=== PATIENT | female | born 2005 | race Caucasian/White ===

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

== ENCOUNTER 2023-01-13 05:10 | Inpatient (IN) | payer OTHER, SELFPAY ==
[2023-01-13] VITALS (253 sets, daily range): BP systolic 96–150; BP diastolic 68–103; PULSE 73–118; TEMP 36.4–37; O2SAT 91–100; BMI 39.6
--- NOTE | 2023-01-13 05:49 | LDADM ---
This patient, Elizabeth Rogers, was admitted to Labor/Delivery/Recovery 107 on 01/13/23 at 05:10. Plans for labor, pain management and were discussed with patient. Patient/family oriented to hospital policies and general routines including ID bracelet, bed and alarms, visiting hours, pain management, procedures, bathroom and other care routines, personal items, smoking policy, room service/diet and guest tray routines, infant security routines, and visiting hours. Patient/Family are encouraged to report perceived risks to care and to ask questions if they do not understand what they are told or what they should do. See OBIX for further documentation.
[2023-01-13] MEDS: miSOPROStol 25 MCG TABLET VAGINAL (06:39)
[2023-01-13 06:42] LABS: Basophils Absolute Auto 0.1 K/mm3 (0.0-0.1); Basophils Percent Auto 0.5 % (0.2-1.2); Eosinophils Absolute Auto 0.2 K/mm3 (0-0.3); Eosinophils Percent Auto 1.8 % (0-4.4); Hematocrit 34.2 % (37.0-47.0); Hemoglobin 10.8 g/dL (12.0-15.0); Immature Granulocyte Absolute 0.13 K/mm3 (0.00-0.031); Lymphocytes Absolute Auto 2.44 K/mm3 (0.9-3.2); Lymphocytes Percent Auto 18.7 % (18.3-44.2); Mean Corpuscular HGB Conc 31.6 g/dl (32-36); Mean Corpuscular Hemoglobin 25.9 pg (26-34); Mean Platelet Volume 9.9 fl (7.4-10.4); Monocytes Absolute Auto 1.1 K/mm3 (0.1-0.6); Neutrophils Absolute Auto 9.1 K/mm3 (1.3-6.7); Platelet Count Result 346 k/mm3 (150-375); Red Blood Count 4.17 M/mm3 (4.2-5.4); Red Cell Distribution Width 15.1 % (11.5-14.5); White Blood Count 13.1 K/mm3 (4.5-10.0)
[2023-01-13] MEDS: miSOPROStol 25 MCG TABLET PO (11:30)
[2023-01-13 13:51] LABS: Rapid Plasma Reagin Non-Reactive (NonReactive)
[2023-01-13] MEDS: LACTATED RINGERS 1,000 ML 125 ML IV CONT ×2 (15:34→23:03)
[2023-01-13] MEDS: OXYTOCIN 30 UNITS/NS 500 ML 30 UNITS/500 ML BAG 6 UNITS IV CONT (15:34)
--- NOTE | 2023-01-13 17:30 | WPDANESEPPF ---
Anes - Initial Pre Proc Eval Procedure: Labor Epidural Date/Time: 01/13/23 17:30 Surgeon: Natalya Haywood MD Pre Op Diagnosis: Labor Pain Pre Op Diagnosis: IOL Patient Data Age: 17 Gender: F Height: 1.6 m Weight: 101.36 kg Last Vital Signs Temp 36.4 C 01/13/23 14:00 Pulse 87 01/13/23 17:00 BP 123/85 01/13/23 17:00 Pulse Ox 100 01/13/23 17:26 O2 Del Method Room Air 01/13/23 05:48 Allergies Allergy/AdvReac Type Severity Reaction Status Date / Time No Known Allergies Allergy Verified 12/21/22 14:33 Home Medications Medication Instructions Recorded Confirmed Type prenat.vits,stephanie,jxf-jihd-ptors 1 tablet PO DAILY 01/13/23 01/13/23 History Laboratory Tests 01/13/23 06:32 WBC 13.1 H K/mm3 (4.5-10.0) RBC 4.17 L M/mm3 (4.2-5.4) Hgb 10.8 L g/dL (12.0-15.0) Hct 34.2 L % (37.0-47.0) MCV 82.0 fl (80-100) MCH 25.9 L pg (26-34) MCHC 31.6 L g/dl (32-36) RDW 15.1 H % (11.5-14.5) Plt Count 346 k/mm3 (150-375) MPV 9.9 fl (7.4-10.4) Immature Gran % (Auto) 1.0 H % (0-0.5) Neut % (Auto) 70.0 % (45.5-73.1) Lymph % (Auto) 18.7 % (18.3-44.2) Leake % (Auto) 8.0 % (2.6-8.5) Eos % (Auto) 1.8 % (0-4.4) Baso % (Auto) 0.5 % (0.2-1.2) Lymph # (Auto) 2.44 K/mm3 (0.9-3.2) Leake # (Auto) 1.1 H K/mm3 (0.1-0.6) Eos # (Auto) 0.2 K/mm3 (0-0.3) Baso # (Auto) 0.1 K/mm3 (0.0-0.1) Abs Immat Gran (auto) 0.13 H K/mm3 (0.00-0.031) Absolute Neuts (auto) 9.1 H K/mm3 (1.3-6.7) Absolute Nucleated RBC 0.0 K/mm3 (0.0-0.012) Nucleated RBC % 0.0 % (0.0-0.2) RPR Non-reactive (NonReactive) Blood Type O Positive Antibody Screen Negative Patient hx anesthesia problems: none Family hx anesthesia problems: none Results Review: All pre-operative results and documents have been reviewed as part of the pre-operative evaluation. [facility] Family History Family History Other No pertinent family history Social History Social History Smoking status: Former smoker Tobacco type: e-cigarettes/vaping Second hand tobacco smoke exposure: No Substance use: never Lack of Transportation: No Lack of Food: Sometimes True Current Housing: I Have Housing Concerned About Future Housing: No Difficulty Paying Gas/Electric Bills: No Difficulty Paying for Meds: No Currently Unemployed: No Education: Grade School Difficulty w/ Childcare or Family Care: No Living arrangements: with family Spiritual care concerns: No Anes - Eval Final PreProcedure Day of Procedure 01/13/23 17:30 Patient weight: obese Heart: regular rate and rhythm Lungs: clear to auscultation Neurological: alert and oriented Results Review: All pre-operative results and documents have been reviewed as part of the pre-operative evaluation. Informed Consent: The patient's anesthetic plan and its attendant risks and benefits were discussed with the patient/family/POA. Questions were solicited and answers provided to the satisfaction of the patient/family/POA.
--- NOTE | 2023-01-13 18:07 | PM.IMHP ---
H&P: HPI History of Present Illness Date/Time: 01/13/23 18:07 Chief Complaint: induction of labor Narrative: Elizabeth is a 17yo at 39.0 for IOL. 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 This she was followed for LGA (93%, AC 97% at 34w, then 84%/AC 92% at 38w). GBS neg. Review of Systems Review of Systems: All systems reviewed & are unremarkable except as noted in HPI and below PMFSH Family History Family History Other No pertinent family history Social History Social History Smoking status: Former smoker Tobacco type: e-cigarettes/vaping Second hand tobacco smoke exposure: No Substance use: never Lack of Transportation: No Lack of Food: Sometimes True Current Housing: I Have Housing Concerned About Future Housing: No Difficulty Paying Gas/Electric Bills: No Difficulty Paying for Meds: No Currently Unemployed: No Education: Grade School Difficulty w/ Childcare or Family Care: No Living arrangements: with family Spiritual care concerns: No Meds Home Medications and Allergies Home Medications Medication Instructions Recorded Confirmed Type prenat.vits,stephanie,fbo-wcth-qpkty 1 tablet PO DAILY 01/13/23 01/13/23 History Allergies Allergy/AdvReac Type Severity Reaction Status Date / Time No Known Allergies Allergy Verified 12/21/22 14:33 Vital Signs Vital Signs - 24 hr 01/13/23 05:43 01/13/23 05:45 01/13/23 06:00 Temperature Pulse Rate 100 102 H 95 Blood Pressure 135/83 136/78 138/83 Pulse Oximetry Oxygen Delivery 01/13/23 06:36 01/13/23 06:41 01/13/23 06:45 Temperature Pulse Rate Blood Pressure Pulse Oximetry 100 100 99 Oxygen Delivery 01/13/23 06:46 01/13/23 06:50 01/13/23 06:55 Temperature Pulse Rate 79 Blood Pressure 124/71 Pulse Oximetry 99 99 Oxygen Delivery 01/13/23 07:00 01/13/23 07:01 01/13/23 07:05 Temperature Pulse Rate 93 Blood Pressure 122/69 Pulse Oximetry 100 99 Oxygen Delivery 01/13/23 07:10 07/24/23 07:15 01/13/23 07:16 Temperature Pulse Rate 86 Blood Pressure 118/71 Pulse Oximetry 99 98 Oxygen Delivery 01/13/23 07:20 01/13/23 07:25 01/13/23 07:30 Temperature Pulse Rate 95 Blood Pressure 131/81 Pulse Oximetry 99 99 98 Oxygen Delivery 01/13/23 07:35 01/13/23 07:40 01/13/23 07:45 Temperature Pulse Rate Blood Pressure Pulse Oximetry 98 98 99 Oxygen Delivery 01/13/23 07:46 01/13/23 07:50 01/13/23 07:55 Temperature Pulse Rate 95 Blood Pressure 96/74 L Pulse Oximetry 100 100 Oxygen Delivery 01/13/23 08:00 01/13/23 08:05 01/13/23 08:10 Temperature Pulse Rate 82 Blood Pressure 114/79 Pulse Oximetry 99 100 99 Oxygen Delivery 01/13/23 08:15 01/13/23 08:16 01/13/23 08:20 Temperature Pulse Rate 85 Blood Pressure 120/73 Pulse Oximetry 100 99 Oxygen Delivery 01/13/23 08:25 01/13/23 08:30 01/13/23 08:35 Temperature Pulse Rate 82 Blood Pressure 121/71 Pulse Oximetry 99 99 98 Oxygen Delivery 01/13/23 08:40 01/13/23 08:45 01/13/23 08:50 Temperature Pulse Rate 86 Blood Pressure 119/70 Pulse Oximetry 99 98 98 Oxygen Delivery 01/13/23 08:55 01/13/23 09:00 01/13/23 09:05 Temperature Pulse Rate 89 Blood Pressure 116/71 Pulse Oximetry 98 97 97 Oxygen Delivery 01/13/23 09:10 01/13/23 09:15 01/13/23 09:16 Temperature Pulse Rate 87 Blood Pressure 111/69 Pulse Oximetry 98 98 Oxygen Delivery 01/13/23 09:20 01/13/23 09:25 01/13/23 09:32 Temperature Pulse Rate Blood Pressure Pulse Oximetry 97 100 100 Oxygen Delivery 01/13/23 09:37 01/13/23 09:42 01/13/23 09:47 Temperature Pulse Rate Blood Pressure Pulse Oximetry 99 100 99 Oxygen Delivery
[2023-01-13] MEDS: fentaNYL CITRATE INJ (*CRX) 100 MCG/2 ML VIAL 50 MCG IV PUSH ×2 (21:18→22:05)
[2023-01-13] MEDS: ONDANSETRON INJ 4 MG/2 ML VIAL IV PUSH (23:57)
[2023-01-14] VITALS (269 sets, daily range): BP systolic 89–151; BP diastolic 33–101; PULSE 73–127; RESP 18–20; TEMP 36.6–37.5; O2SAT 83–100
[2023-01-14] MEDS: LACTATED RINGERS 1,000 ML 125 ML IV CONT ×2 (00:15→08:06)
--- NOTE | 2023-01-14 00:16 | WPDANESEPN ---
Anes - Epidural Procedure Note Date/Time: 01/14/23 00:16 Consent: I have discussed with the patient/family/POA, the placement of an epidural catheter and the use of epidural narcotic/local anesthetic for labor analgesia and/or postoperative pain management, including associated potential risks, benefits, complications and side effects. I have discussed alternative methods of labor analgesia and/or postoperative pain management. The patient/family/POA, understand(s) and wish(es) to proceed with epidural narcotic/local anesthetic for labor analgesia and/or postoperative pain management. Time-Out: A pre-procedural Time-Out was completed immediately before starting the procedure and confirmed: Patient Identification, Site, Procedure, Patient Position and the Availability of Requisite Equipment. Clinical Indications: Labor pain Epidural Insertion Note Patient position: sitting Skin prep: chlorhexidine and sterile drape Needle: 18g Tuohy-Schliff Catheter: 20g Unstyleted Technique: Loss of resistance. Level of insertion: L3/4 Catheter skin isaac (cm): 10 Length in epidural space (cm): 5 Skin anesthesia: lidocaine 1% Test dose: 1.5% Lidocaine with 1:[id number] Epi, negative for subarachnoid Inj and negative for intravascular Inj Time of test dose: 00:06 Observations: tolerated well Complications: none
--- NOTE | 2023-01-14 07:31 | PM.OBPNLAB ---
Pain Control Date/time seen: 01/14/23 07:31 Pain control: epidural Pelvic Exam Dilation (cm): 4 Contractions Contraction pattern: Regular Status status: Category l Assessment and Plan Assessment: induction ongoing Plan: continuous present management
[2023-01-14] MEDS: AMPICILLIN 2 GM/NS 100 ML 2 GM/100 ML BAG IVPB (10:18)
[2023-01-14] MEDS: OXYTOCIN 30 UNITS/NS 500 ML 30 UNITS/500 ML BAG 125 UNITS IV CONT (13:18)
--- NOTE | 2023-01-14 13:19 | PM.OBPRVD ---
OB - Delivery Note Procedure Delivery date: 01/14/23 Procedure: Events: Macrosomia Induction method: AROM, Per Misoprostol Protocol and Per Pitocin Protocol Delivery monitor: External FHT and Internal Uterine Route of delivery: Laceration Description: Labial (bilateral) Delivery repair: vicryl Quantitative Blood Loss (ml): 175 Anesthesia type: Epidural Disposition: Floor Narrative: With adequate expulsive efforts by the mother, the baby's head was delivered OA. The baby's anterior shoulder was delivered under the pubic symphysis without difficulty. The posterior shoulder and the rest of the baby delivered without difficulty. The infant was placed on the mothers chest and suctioned and stimulated. The cord was clamped and cut after 30 seconds. Mother and baby both stable. Baby Date of : 01/14/23 Time of : 12:58 Weeks of gestation at delivery: 39 Infant gender: Male presentation: vertex Placenta delivery description: Spontaneous Cord Vessel Description: 3 Vessels, Nuchal Cord and Delayed Cord Clamping score one minute: 9 score five minutes: 9
[2023-01-14] MEDS: WITCH HAZEL 40 PADS 1 PAD TOPICAL (15:51)
[2023-01-14] MEDS: BENZOCAINE 20% AER SPR (*SP) 56 GM CAN 1 SPRAY TOPICAL (15:51)
--- NOTE | 2023-01-14 16:44 | OBPPTRN ---
1556 Patient transferred to post room #278 via W/C . Support person present. Oriented to unit, room, information board, rooming in, admission packet and security measures. Patient verbalizes understanding.
[2023-01-15 04:10] VITALS: BP 127/76; PULSE 89; RESP 18; TEMP 36.8
[2023-01-15 05:32] LABS: Hematocrit 28.8 % (37.0-47.0); Hemoglobin 8.9 g/dL (12.0-15.0)
--- NOTE | 2023-01-15 07:37 | P.PNOB_ITS ---
OB - PN: Subj Subjective Date/time seen: 01/15/23 07:37 Patient comments: no complaints and pain well controlled baby status: doing well and nursing well [place] feeding status: exclusively breast feeding OB - PN: Obj Data Labs 01/15/23 03:59 Labs: Laboratory Results - last 24 hr 01/15/23 03:59 Hgb 8.9 L Hct 28.8 L OB - PN A/P Plan day: 1 Plan: routine care Comments: anemia- venofer x1 circumcision done after consented home tomorrow. Time Spent With Patient Time: Total time spent is greater than 50% in coordination of care (as documented) at patient's floor/unit and/or counseling patient: Time with patient: less than 15 minutes Exam Narrative: NAD abdomen soft, nontender, fundus firm below the umbilicus Extremities nontender, 1+ edema
--- NOTE | 2023-01-15 07:52 | WPDANLDPN2 ---
Anes-Prog Note L&D Date/Time: 01/15/23 07:52 Comfortable throughout: labor and delivery Neuraxial method: epidural Epidural/Spinal procedure site: clean & non-tender Neuro status: Neuro function grossly intact. Cardiovascular status: normal Respiratory status: normal Airway patency: baseline Mental status: baseline Post-Op hydration status: normal Vital Signs: Last Vital Signs Temp 98.3 F 01/15/23 04:10 Pulse 89 01/15/23 04:10 Resp 18 01/15/23 04:10 BP 127/76 01/15/23 04:10 Pulse Ox 97 01/14/23 15:56 O2 Del Method Room Air 01/14/23 19:40 Pain score (VAS): 0/10 I/O: Intake & Output 01/14/23 01/14/23 01/15/23 15:59 23:59 07:59 Intake Total 1600 240 Output Total 133 Balance 1600 107 Post-procedural complaints: none Patient feedback: Patient satisfied with anesthetic care.
[2023-01-15] MEDS: MULTIVIT/MIN/PREN/FOL AC/IRON TABLET 1 TAB PO (08:46)
[2023-01-15] MEDS: POLYSACCHARIDE IRON COMPLEX 150 MG CAPSULE PO ×2 (08:46→17:32)
[2023-01-15] MEDS: IBUPROFEN 600 MG TABLET PO ×2 (08:47→17:31)
[2023-01-15] MEDS: DOCUSATE SODIUM 100 MG CAPSULE PO ×2 (08:47→17:31)
[2023-01-15 09:40] VITALS: BP 124/69; PULSE 87; RESP 18; TEMP 36.4; O2SAT 98
--- NOTE | 2023-01-15 11:25 | PC.NURSE ---
[id number] Primary RN is present assisting with . Introductions were made, then consulted with patient to assess needs related to . Mother led the conversation with her?plans to feed?her infant and the?experience so far. Mother works well with her infant with encouragement and education, however, was encouraged to improve infant alignment as infants abdomen is facing the ceiling as she attempts to latch her infant to the left breast with cradle positioning. Infant is sleepy and mother states she is having a difficult time getting to latch to the left breast. Encouraged understanding of the benefits of skin to skin (demonstrating unwrapping infant and placing upright on her chest), stimulating with massage touch, responsive feeding, feeding on demand (aiming for 8-12 times in 24 hours, about every 2-3 hours), milk production, building/maintaining a milk supply, duration of feeding, signs of adequate intake/output and how to record on the feeding sheet. Reviewed positioning and ear, shoulder, hip alignment, supporting the breast to facilitate a deep latch, asymmetrical latch (off-center), leading with the chin with a big, open, wide gape and body close to mother. latched optimally to the left breast in cross cradle position. Education given to mother of how to visualize suck/swallow with good rocking jaw movement. Infant was able to maintain latch without discomfort to mother. Nipple care reviewed with optimal latch and good positioning. Reminding mother of comfort measures of healing with a warm and wet washcloth to rinse breast, then leave open to air-dry as needed. Reviewed good handwashing when or touching the breast/nipples to prevent infection. Resources used to facilitate learning were used with the mom and baby guide. Mother voiced understanding of skin to skin, stimulating with massage touch, responsive feedings, talking to infant to encourage if it has been 2 -2.5 hours since the start of the last , to call if does not latch, or if there is discomfort with . Resources provided for inpatient/outpatient with the mom/baby guide. Mother voiced understanding of information, demonstrated learning and will call if there is a request for assistance. Reported to the Primary RN.
[2023-01-15 12:05] VITALS: BP 111/66; PULSE 79; RESP 18; TEMP 36.7; O2SAT 98
[2023-01-15 19:16] VITALS: BP 116/75; PULSE 78; RESP 18; TEMP 36.9
--- NOTE | 2023-01-16 08:15 | PM.OBPNVD ---
OB - PN: Subj Subjective Date/time seen: 01/16/23 08:15 Patient comments: no complaints, pain well controlled and tolerating diet OB - PN: Obj Data Labs 01/15/23 03:59 OB - PN A/P Plan day: 2 Plan: routine care and discharge home Time Spent With Patient Time: Total time spent is greater than 50% in coordination of care (as documented) at patient's floor/unit and/or counseling patient: Exam Const: General: comfortable and no acute distress Resp: Effort & Inspection: normal respiratory effort Auscultation: no rales, no rhonchi and no wheezes Cardio: Rate: regular rate Heart sounds: no click, no murmurs and no rubs GI: GI Palp: Yes Soft to palpation and No Tenderness to palpation present (GI) Auscultation: normal bowel sounds Extrem: General: normal to inspection, no pedal edema and no calf tenderness
--- NOTE | 2023-01-16 08:15 | PM.OBDSVD ---
DS: Admitting Diagnosis Discharge Date January 16, 2023 Admitting Diagnosis term DS: Discharge Diagnosis Discharge Diagnosis (1) Term delivered: Code(s): O80 - Encounter for full-term uncomplicated delivery Status: Acute OB - DS: Summary OB Procedures : None OB Procedures Intrapartum: Spontaneous Vag Delivery OB Procedures: : None Time Spent with Patient Time attestation: Total time spent providing and/or coordinating discharge services: Discharge Plan Discharge Discharging Clinician: Nereida Valladares Patient Disposition: Home, Self-Care Activity: pelvic rest Diet: regular Patient Instructions: Antibiotic Form Stand Alone Forms: General Discharge Information Follow-up/Referrals: Nereida Valladares MD [Physician] - Discharge Medications: Continued Vitamin Tablet 1 tablet PO DAILY Date of admission: 01/13/23 05:10 Primary Care Provider: Martinez,Maegan Admitting Provider: Natalya Haywood Attending physician on admission: Natalya Haywood Condition: Stable
[2023-01-16] MEDS: DOCUSATE SODIUM 100 MG CAPSULE PO (08:31)
[2023-01-16] MEDS: POLYSACCHARIDE IRON COMPLEX 150 MG CAPSULE PO (08:31)
[2023-01-16] MEDS: MULTIVIT/MIN/PREN/FOL AC/IRON TABLET 1 TAB PO (08:31)
[2023-01-16 08:40] VITALS: BP 107/63; PULSE 77; RESP 18; TEMP 36.9; O2SAT 99
== END 2023-01-16 11:30 | disposition home or self-care (01) | DRG 560 ==
LOC: ANHOB2 01-16 08:43 → ANHLDR 01-17 09:58 → ANHOB2 01-17 09:58
PROVIDERS: Admitting Provider Obstetrics & Gynecology; PCP Family Medicine; Visit Provider Obstetrics & Gynecology
DX: O36.63X0 Maternal care for excessive fetal growth, third trimester, not applicable or unspecified (principal); O42.02 Full-term premature rupture of membranes, onset of labor within 24 hours of rupture; O69.81X0 Labor and delivery complicated by cord around neck, without compression, not applicable or unspecified; Z37.0 Single live birth; Z3A.39 39 weeks gestation of pregnancy; O70.0 First degree perineal laceration during delivery
CPT/HCPCS: 36415; 85014; 85018; 85025; 86592; 86850; 86900; 86901; A9270; J0290; J2405; J2590; J2795; J3010; J7120